=== PATIENT | male | born 1950 | race Caucasian/White ===

== ENCOUNTER → 2017-05-16 | Outpatient (CLI) | payer BC | LOC: M RAD 06:40 | DX: I82.411 Acute embolism and thrombosis of right femoral vein (principal) | CPT/HCPCS: 93971 ==

== ENCOUNTER → 2017-05-28 | Outpatient (CLI) | payer BC ==
[2017-05-28 09:21] LABS: INR 1.02; PROTHROMBIN TIME 13.5 SECONDS (12.4-14.5)
== END ==
LOC: M LAB 08:28
DX: Z86.718 Personal history of other venous thrombosis and embolism (principal)
CPT/HCPCS: 85610

== ENCOUNTER 2018-04-03 06:26 | Emergency (ER) | payer OTHER, BC ==
[2018-04-03] MEDS: NORCO, ANEXSIA 5/325MG TABLET (HYDROcodone/ACETAMINOPHEN) PO (07:33)
== END 2018-04-03 09:31 | disposition home or self-care (01) ==
LOC: M ED 06:26
DX: M54.6 Pain in thoracic spine (principal); S00.01XA Abrasion of scalp, initial encounter; W01.0XXA Fall on same level from slipping, tripping and stumbling without subsequent striking against object, initial encounter; Y92.89 Other specified places as the place of occurrence of the external cause; I10 Essential (primary) hypertension; E78.01 Familial hypercholesterolemia; Z88.0 Allergy status to penicillin; Z88.8 Allergy status to other drugs, medicaments and biological substances
CPT/HCPCS: 70450

== ENCOUNTER → 2018-05-28 | Outpatient (CLI) | payer BC, MEDICARE ==
[~2018-05-28] MED LIST: HYDR2.5T34 PO; IBUP-1022 PO; NORCOTAB PO
[2018-05-28 08:35] LABS: HEMATOCRIT 43.8 % (42.0-52.0); HEMOGLOBIN 14.6 g/dl (13.5-17.5); MEAN CORPUSCULAR HEMOGLOBIN 29.5 pg (27.0-33.0); MEAN CORPUSCULAR HGB CONC 33.3 g/dl (32.0-36.5); MEAN CORPUSCULAR VOLUME 88.5 fl (80.0-96.0); PLATELET COUNT, AUTOMATED 260 10^3/uL (150-450); RED BLOOD COUNT 4.95 10^6/uL (4.30-6.10); WHITE BLOOD COUNT 5.7 10^3/uL (4.0-10.0)
[2018-05-28 09:18] LABS: ALT/SGPT 20 U/L (12-78); BILIRUBIN,TOTAL 0.9 MG/DL (0.2-1.0); BLOOD UREA NITROGEN 12 MG/DL (7-18); CALCIUM LEVEL 8.9 MG/DL (8.8-10.2); CARBON DIOXIDE LEVEL 27 MEQ/L (21-32); CHLORIDE LEVEL 106 MEQ/L (98-107); CHOLESTEROL LEVEL 180 MG/DL (<200); CHOLESTEROL RISK RATIO 3.913 (<5); GLOMERULAR FILTRATION RATE > 60.0 (>49); GLUCOSE, FASTING 108 MG/DL (70-100); HDL CHOLESTEROL 46 MG/DL (>40); LDL CHOLESTEROL 110 MG/DL (<100); NON-HDL-C 134 MG/DL; POTASSIUM SERUM 3.8 MEQ/L (3.5-5.1); PROSTATIC SPECIFIC AG MONITOR 0.94 NG/ML (< 4.00); SODIUM LEVEL 140 MEQ/L (136-145); THYROID STIMULATING HORMONE 0.531 uIU/ML (0.358-3.740); TOTAL PROTEIN 6.9 GM/DL (6.4-8.2); TRIGLYCERIDES LEVEL 120 MG/DL (<150)
[2018-05-28 09:39] LABS: HEMOGLOBIN A1c 5.8 %
--- NOTE | 2018-05-29 03:51 | REP ---
Clinical: Hypertension and anemia . Comparison: 03/06/2016 . Technique: PA and lateral. Findings: The mediastinum and cardiac silhouette are normal. The lung fox are clear and without acute consolidation, effusion, or pneumothorax. The skeletal structures are intact and normal. Impression: 1. No acute cardiopulmonary process. Electronically Signed by Chaim Ross MD 05/29/2018 03:44 A
--- NOTE | 2018-05-29 21:41 | ECGEPIP ---
Stationary ECG Study [facility] Test Date: 2018-05-28 Pat Name: MIKAL CASTELLANOS Department: Room: - Gender: M Note Specialist: : [id number] Requested By: Ayla Braxton Order Number: [id number] Reading MD: Rajendra Calle Measurements Intervals [place] Rate: 81 P: 46 OR: 164 QRS: -9 QRSD: 93 T: 37 QT: 395 QTc: 459 Interpretive Statements SINUS RHYTHM No significant change compared with 03/06/2016. Electronically Signed On 05-29-2018 21:41:02 EST by Rajendra Calle
== END ==
LOC: M LAB 07:54
PROVIDERS: ATTEND Family Medicine
DX: I10 Essential (primary) hypertension (principal); D64.9 Anemia, unspecified

== ENCOUNTER → 2018-12-22 | Outpatient (CLI) | payer MEDICARE ==
[~2018-12-22] MED LIST changes: +E-Z-GAS II EFFERVESCENT PACKET (SODIUM BICARB./CITRIC ACID/SIMETHICONE) As Ordered ONE; +E-Z-HD 98% w/w 340GM SUSP BTL As Ordered ONE; +E-Z-PAQUE 96% w/w SUSP 176GM BTL As Ordered ONE; +HYDR-3715 PO; -NORCOTAB PO
--- NOTE | 2018-12-22 20:13 | REP ---
Examination Requested: Esophagram Barium Swallow Reason For Exam/Comment: Dysphasia, rule out esophageal carcinoma Esophagram: The procedure was performed SKYLER Connolly, under the direct supervision of Dr. Farfan. The images were reviewed with Dr. Farfan. A single PA chest x-ray is submitted as a inhalation therapy aides teacher film. The superior mediastinal structures are midline. The heart size is within normal limits. The lungs are clear. Liquid barium and gas producing granules were given in the erect position as well as liquid barium in the prone oblique position, in order to perform a double contrast esophagram examination. Oral and pharyngeal stages of the examination were unremarkable. Esophageal transport is efficient. There is mild mucosal narrowing and irregularity of the lower cervical and distal esophagus, which may be consistent with esophagitis and mild scarring. Endoscopy is recommended to rule out early neoplasm. There is no hiatal hernia noted. Gastroesophageal reflux is not appreciated throughout the course of the exam. Impression: 1. Mild mucosal narrowing and irregularity of the lower cervical and distal esophagus. Possible esophagitis and early neoplasm. 2. Endoscopy recommended. 0.6 minutes of fluoroscopy time was utilized for this procedure. Some fluoroscopic images are performed with last image hold technology. These images require no additional radiation. Reviewed by SKYLER Cortez 12/22/2018 04:20 P Electronically Signed by Efe Farfan MD 12/22/2018 08:05 P
== END ==
LOC: M RAD 08:03
PROVIDERS: ATTEND Family Medicine
DX: R13.10 Dysphagia, unspecified (principal)

== ENCOUNTER → 2021-11-15 | Outpatient (CLI) | payer MEDICARE ==
[~2021-11-15] MED LIST changes: -E-Z-GAS II EFFERVESCENT PACKET (SODIUM BICARB./CITRIC ACID/SIMETHICONE) As Ordered ONE; -E-Z-HD 98% w/w 340GM SUSP BTL As Ordered ONE; -E-Z-PAQUE 96% w/w SUSP 176GM BTL As Ordered ONE; +METO5TAB2 PO; +PROP20TA72 PO
[2021-11-15 09:06] LABS: HEMATOCRIT 45.4 % (42.0-52.0); HEMOGLOBIN 15.3 g/dl (13.5-17.5); MEAN CORPUSCULAR HEMOGLOBIN 30.1 pg (27.0-33.0); MEAN CORPUSCULAR HGB CONC 33.7 g/dl (32.0-36.5); MEAN CORPUSCULAR VOLUME 89.4 fl (80.0-96.0); PLATELET COUNT, AUTOMATED 230 10^3/uL (150-450); RED BLOOD COUNT 5.08 10^6/uL (4.30-6.10); WHITE BLOOD COUNT 5.4 10^3/uL (4.0-10.0)
[2021-11-15 09:38] LABS: ALBUMIN 3.6 GM/DL (3.2-5.2); ALT/SGPT 21 U/L (12-78); BILIRUBIN,TOTAL 0.6 MG/DL (0.2-1.0); BLOOD UREA NITROGEN 8 MG/DL (7-18); CARBON DIOXIDE LEVEL 23 MEQ/L (21-32); CHLORIDE LEVEL 110 MEQ/L (98-107); CHOLESTEROL LEVEL 175 MG/DL (<200); CHOLESTEROL RISK RATIO 3.804 (<5); CREATININE FOR GFR 0.72 MG/DL (0.70-1.30); GLOMERULAR FILTRATION RATE > 60.0 (>42); GLUCOSE, FASTING 102 MG/DL (70-100); HDL CHOLESTEROL 46 MG/DL (>40); LDL CHOLESTEROL 110 MG/DL (<100); NON-HDL-C 129 MG/DL; POTASSIUM SERUM 3.9 MEQ/L (3.5-5.1); SODIUM LEVEL 141 MEQ/L (136-145); THYROID STIMULATING HORMONE 0.478 uIU/ML (0.358-3.740); TOTAL PROTEIN 6.4 GM/DL (6.4-8.2); TRIGLYCERIDES LEVEL 93 MG/DL (<150)
[2021-11-15 09:44] LABS: HEMOGLOBIN A1c 5.5 %
[2021-11-15 11:56] LABS: TESTOSTERONE 897 NG/DL (241-827)
== END ==
LOC: M LAB 08:24
PROVIDERS: ATTEND Family Medicine
DX: I10 Essential (primary) hypertension (principal); Z12.5 Encounter for screening for malignant neoplasm of prostate
CPT/HCPCS: 36415; 80053; 80061; 83036; 84403; 84443; 85027; G0103

== ENCOUNTER → 2022-12-21 | Outpatient (CLI) | payer MEDICARE ==
[2022-12-21 09:23] LABS: HEMATOCRIT 42.9 % (42.0-52.0); HEMOGLOBIN 14.2 g/dl (13.5-17.5); MEAN CORPUSCULAR HEMOGLOBIN 29.2 pg (27.0-33.0); MEAN CORPUSCULAR HGB CONC 33.1 g/dl (32.0-36.5); MEAN CORPUSCULAR VOLUME 88.3 fl (80.0-96.0); PLATELET COUNT, AUTOMATED 242 10^3/uL (150-450); RED BLOOD COUNT 4.86 10^6/uL (4.30-6.10); WHITE BLOOD COUNT 5.4 10^3/uL (4.0-10.0)
[2022-12-21 09:48] LABS: HEMOGLOBIN A1c 5.8 % (4.0-6.0); PROSTATIC SPECIFIC AG MONITOR 1.44 NG/ML (< 4.00)
[2022-12-21 09:52] LABS: ALBUMIN 3.8 G/DL (3.2-5.2); ALKALINE PHOSPHATASE 81 U/L (46-116); ALT/SGPT 17 U/L (7.0-40); AST/SGOT 9 U/L (<34); BILIRUBIN,TOTAL 0.8 MG/DL (0.3-1.2); BLOOD UREA NITROGEN 9 MG/DL (9-23); CARBON DIOXIDE LEVEL 23 MMOL/L (20-31); CHLORIDE LEVEL 108 MMOL/L (98-107); CHOLESTEROL LEVEL 182 MG/DL (<200); CHOLESTEROL RISK RATIO 3.69 (<5); CREATININE FOR GFR 0.73 MG/DL (0.70-1.30); GLOMERULAR FILTRATION RATE > 60.0 (>42); GLUCOSE, FASTING 111 MG/DL (74-106); HDL CHOLESTEROL 49.3 MG/DL (>40); LDL CHOLESTEROL 113.1 MG/DL (<100); NON-HDL-C 132.7 MG/DL; POTASSIUM SERUM 4.1 MMOL/L (3.5-5.1); SODIUM LEVEL 140 MMOL/L (136-145); TOTAL PROTEIN 6.4 G/DL (5.7-8.2); TRIGLYCERIDES LEVEL 98 MG/DL (<150)
[2022-12-21 09:53] LABS: THYROID STIMULATING HORMONE 0.824 uIU/ML (0.55-4.78)
[2022-12-21 09:54] LABS: TESTOSTERONE 414 NG/DL (241-827)
== END ==
LOC: M LAB 08:21
PROVIDERS: ATTEND Family Medicine
DX: I10 Essential (primary) hypertension (principal); E03.9 Hypothyroidism, unspecified; R53.83 Other fatigue; Z79.899 Other long term (current) drug therapy

== ENCOUNTER → 2023-08-02 | Outpatient (CLI) | payer MEDICARE ==
[2023-08-02 09:22] LABS: HEMATOCRIT 42.7 % (42.0-52.0); HEMOGLOBIN 14.3 g/dl (13.5-17.5); MEAN CORPUSCULAR HGB CONC 33.5 g/dl (32.0-36.5); MEAN CORPUSCULAR VOLUME 89.5 fl (80.0-96.0); PLATELET COUNT, AUTOMATED 252 10^3/uL (150-450); RED BLOOD COUNT 4.77 10^6/uL (4.30-6.10); WHITE BLOOD COUNT 5.2 10^3/uL (4.0-10.0)
[2023-08-02 09:37] LABS: PROSTATIC SPECIFIC AG MONITOR 1.39 NG/ML (< 4.00)
[2023-08-02 09:39] LABS: ALBUMIN 3.7 G/DL (3.2-5.2); ALKALINE PHOSPHATASE 78 U/L (46-116); ALT/SGPT 19 U/L (7.0-40); AST/SGOT 12 U/L (<34); BILIRUBIN,TOTAL 0.7 MG/DL (0.3-1.2); BLOOD UREA NITROGEN 13 MG/DL (9-23); CALCIUM LEVEL 8.8 MG/DL (8.3-10.6); CARBON DIOXIDE LEVEL 24 MMOL/L (20-31); CHLORIDE LEVEL 110 MMOL/L (98-107); CHOLESTEROL LEVEL 176 MG/DL (<200); CHOLESTEROL RISK RATIO 4.01 (<5); CREATININE FOR GFR 0.72 MG/DL (0.70-1.30); GLOMERULAR FILTRATION RATE > 60.0 (>42); GLUCOSE, FASTING 113 MG/DL (74-106); HDL CHOLESTEROL 43.8 MG/DL (>40); LDL CHOLESTEROL 107.4 MG/DL (<100); NON-HDL-C 132.2 MG/DL; SODIUM LEVEL 139 MMOL/L (136-145); TOTAL PROTEIN 6.2 G/DL (5.7-8.2); TRIGLYCERIDES LEVEL 124 MG/DL (<150)
[2023-08-02 09:41] LABS: TESTOSTERONE 280 NG/DL (241-827); THYROID STIMULATING HORMONE 0.618 uIU/ML (0.55-4.78); TOTAL 25(OH) VITAMIN D 59.2 NG/ML (20.0-100.0)
[2023-08-02 09:56] LABS: HEMOGLOBIN A1c 5.7 % (4.0-6.0)
== END ==
LOC: M LAB 08:43
PROVIDERS: ATTEND Family Medicine
DX: I10 Essential (primary) hypertension (principal); E11.9 Type 2 diabetes mellitus without complications; E03.9 Hypothyroidism, unspecified; R53.83 Other fatigue; Z79.899 Other long term (current) drug therapy

== ENCOUNTER 2024-03-31 15:27 | Emergency (ER) | payer OTHER, MEDICARE ==
[~2024-03-31] VITALS: Ht 185.4 cm; Wt 111.1 kg
[2024-03-31] MEDS: KETOROLAC 60MG 2ML VIAL IM ONE (17:30)
[2024-03-31] MEDS ORDERED: METH-1164 PO (19:47)
[2024-03-31] MEDS: methocarbamoL 500 MG TAB PO ONE (19:53)
[2024-03-31 20:00] VITALS: BP 174/96; TEMP 96.9; O2SAT 98
== END 2024-03-31 20:02 | disposition home or self-care (01) ==
LOC: M ED 15:27
DX: S40.011A Contusion of right shoulder, initial encounter (principal); S13.4XXA Sprain of ligaments of cervical spine, initial encounter; W20.8XXA Other cause of strike by thrown, projected or falling object, initial encounter; I10 Essential (primary) hypertension; K21.9 Gastro-esophageal reflux disease without esophagitis; Z88.0 Allergy status to penicillin; Z88.8 Allergy status to other drugs, medicaments and biological substances; Y92.9 Unspecified place or not applicable; Y93.9 Activity, unspecified; Y99.0 Civilian activity done for income or pay; Z79.899 Other long term (current) drug therapy
CPT/HCPCS: 71045; 72125; 73010; 96372; 99283; J1885

== ENCOUNTER → 2024-05-04 | Outpatient (CLI) | payer OTHER, MEDICARE ==
[~2024-05-04] MED LIST changes: +METH-1164 PO
== END ==
LOC: M SOG 07:50
PROVIDERS: ATTEND Physician Assistant
DX: M17.12 Unilateral primary osteoarthritis, left knee (principal)

== ENCOUNTER → 2024-05-18 | Outpatient (RCR) | payer MEDICARE, OTHER | LOC: M PT 05-05 09:38 | PROVIDERS: ATTEND Physician Assistant | DX: M54.2 Cervicalgia (principal) ==

== ENCOUNTER 2024-06-03 10:28 | Outpatient (RCR) | payer OTHER | END 2024-06-18 | LOC: M PT 10:28 | PROVIDERS: ATTEND Physician Assistant | DX: M54.2 Cervicalgia (principal) ==

== ENCOUNTER → 2024-12-15 | Outpatient (CLI) | payer MEDICARE ==
[2024-12-15 18:14] LABS: BASO # 0.0 10^3/uL (0.0-0.2); BASO % 0.7 % (0.0-1.0); EOS # 0.1 10^3/uL (0.0-0.5); EOS % 2.6 % (0.0-3.0); LYMPH # 1.3 10^3/uL (1.5-5.0); LYMPH % 24.8 % (24.0-44.0); MONO # 0.7 10^3/uL (0.0-0.8); MONO % 12.2 % (2.0-8.0); NEUTROPHILS # 3.2 10^3/uL (1.5-8.5); NEUTROPHILS % 59.7 % (36.0-66.0); PLATELET COUNT, AUTOMATED 258 10^3/uL (150-450)
[2024-12-15 18:32] LABS: ESTIMATED AVERAGE GLUCOSE 111.0 MG/DL (60-110)
[2024-12-15 18:46] LABS: ALT/SGPT 21 U/L (7.0-40); AST/SGOT 18 U/L (<34); CALCIUM LEVEL 9.2 MG/DL (8.3-10.6); CARBON DIOXIDE LEVEL 26 MMOL/L (20-31); CHLORIDE LEVEL 106 MMOL/L (98-107); CHOLESTEROL LEVEL 181 MG/DL (<200); CHOLESTEROL RISK RATIO 4.02 (<5); CREATININE FOR GFR 0.84 MG/DL (0.70-1.30); GLOMERULAR FILTRATION RATE > 90.0 (>42); LDL CHOLESTEROL 93.2 MG/DL (<100); NON-HDL-C 136.0 MG/DL; POTASSIUM SERUM 4.4 MMOL/L (3.5-5.1); PSA SCREENING 1.57 NG/ML (< 4.00); SODIUM LEVEL 143 MMOL/L (136-145); TRIGLYCERIDES LEVEL 214 MG/DL (<150)
[2024-12-23 17:32] LABS: TESTOSTERONE FREE (DIRECT) 30.4 pg/mL (30.0-135.0); TESTOSTERONE TOTAL FOR T&D 170.0 ng/dL (250-1100)
== END ==
LOC: M PLALAB 16:15
PROVIDERS: ATTEND Student in an Organized Health Care Education/Training Program
DX: Z00.00 Encounter for general adult medical examination without abnormal findings (principal); I10 Essential (primary) hypertension; E34.9 Endocrine disorder, unspecified; R60.0 Localized edema; Z12.5 Encounter for screening for malignant neoplasm of prostate; Z79.899 Other long term (current) drug therapy

== ENCOUNTER → 2025-01-05 | Outpatient (CLI) | payer MEDICARE ==
[~2025-01-05] MED LIST changes: -IBUP-1022 PO; +IBUP600T42 PO
[2025-01-05 16:25] LABS: CALCIUM LEVEL 9.3 MG/DL (8.3-10.6); CARBON DIOXIDE LEVEL 27 MMOL/L (20-31); CHLORIDE LEVEL 106 MMOL/L (98-107); CREATININE FOR GFR 0.81 MG/DL (0.70-1.30); GLOMERULAR FILTRATION RATE > 90.0 (>42); POTASSIUM SERUM 4.3 MMOL/L (3.5-5.1); SODIUM LEVEL 143 MMOL/L (136-145)
[2025-01-05 16:28] LABS: TOTAL 25(OH) VITAMIN D 60.2 NG/ML (20.0-100.0)
== END ==
LOC: M PLALAB 13:34
PROVIDERS: ATTEND Student in an Organized Health Care Education/Training Program
DX: I10 Essential (primary) hypertension (principal)

== ENCOUNTER → 2025-02-22 | Outpatient (CLI) | payer MEDICARE ==
[~2025-02-22] MED LIST changes: +AMLO1TAB24 PO; +ERGO500029 PO; +IRBE150T27 PO
[2025-03-01 18:54] LABS: TESTOSTERONE FREE (DIRECT) 45.2 pg/mL (30.0-135.0); TESTOSTERONE TOTAL FOR T&D 254.0 ng/dL (250-1100)
== END ==
LOC: M PLALAB 13:50
PROVIDERS: ATTEND Student in an Organized Health Care Education/Training Program
DX: Z00.00 Encounter for general adult medical examination without abnormal findings (principal)

== ENCOUNTER → 2025-02-24 | Outpatient (CLI) | payer MEDICARE | LOC: M CARPUL 13:25 | PROVIDERS: ATTEND Student in an Organized Health Care Education/Training Program | DX: R60.0 Localized edema (principal) ==